=== PATIENT | male | born 1950 | race African-American/Black ===

== ENCOUNTER 2016-11-08 21:50 | Inpatient (IN) | payer MEDICARE, OTHER ==
[~2016-11-08] VITALS: Ht 185.4 cm; Wt 121.1 kg
[2016-11-08 22:43] LABS: MEAN CORPUSCULAR HEMOGLOBIN 31.5 PG (27.0-31.0); MEAN CORPUSCULAR HGB CONC 32.9 G/DL (32.0-36.0); MEAN CORPUSCULAR VOLUME 96 FL (80-99); MEAN PLATELET VOLUME 8.6 FL (6.5-10.1); PLATELET COUNT 101 K/UL (150-450); RED BLOOD COUNT 4.88 M/UL (4.70-6.10); RED CELL DISTRIBUTION WIDTH 12.5 % (11.6-14.8); WHITE BLOOD COUNT 9.4 K/UL (4.8-10.8)
[2016-11-08 22:46] VITALS: BP 132/86
[2016-11-08 22:51] LABS: ALANINE AMINOTRANSFERASE 45 U/L (3-41); ALBUMIN/GLOBULIN RATIO 0.8 (1.0-2.7); ANION GAP 19 (5-15); ASPARTATE AMINO TRANSFERASE 83 U/L (5-40); CALCIUM 8.1 mg/dL (8.6-10.2); CARBON DIOXIDE 19 mEQ/L (20-30); CHLORIDE 98 mEQ/L (98-107); CREATININE 0.9 mg/dL (0.7-1.2); GLOMERULAR FILTRATION RATE > 60 mL/min (>60); HEMOLYSIS 25; POTASSIUM 3.4 mEQ/L (3.4-4.9); SODIUM 136 mEQ/L (135-145); TOTAL PROTEIN 6.4 g/dL (6.6-8.7); TROPONIN I < 0.30 ng/mL (<=0.30)
[2016-11-08 23:11] LABS: BILIRUBIN,DIRECT 0.6 mg/dL (0.1-0.3)
--- NOTE | 2016-11-08 23:25 | Emergency Room Report ---
History of Present Illness General Chief Complaint: Dyspnea/Respdistress Source: Patient Present Illness HPI Is a 65-year-old male who has a over 40 year smoking history. He quit in 2011. Also history of hepatitis. He presents with chief complaint desaturation. He was in the recovery center at the surgical center. He had rotator cuff surgery. He was sent here because observation was in the mid 80 percentile. Also hard time waking him up. Here he said he felt well. He said he fell better now. Still a little groggy. No other complaint. No shortness of breath. No fever or chills. Not on oxygen at home. Allergies: Coded Allergies: No Known Allergies (Unverified , 11/08/16) Patient History Past Medical History: see triage record, old chart reviewed Past Surgical History: other Pertinent Family History: none Social History: Reports: smoking - 40 year history. Quit 2011, Denies: drug use Immunizations: other Reviewed Nursing Documentation: PMH: Agreed, PSxH: Agreed Nursing Documentation-PM Past Medical History: No History, Except For Hx Hypertension: Yes Review of Systems Eye: Denies: blurred vision, eye pain ENT: Denies: ear pain, nose congestion, throat swelling Respiratory: Denies: cough, shortness of breath Cardiovascular: Denies: chest pain, palpitations Gastrointestinal: Denies: abdominal pain, diarrhea, nausea, vomiting Musculoskeletal: Denies: back pain, joint pain Skin: Denies: rash Neurological: Denies: headache, numbness Endocrine: Denies: increased thirst, increased urine Hematologic/Lymphatic: Denies: easy bruising All Other Systems: negative except mentioned in HPI Physical Exam Vital Signs Date Time Temp Pulse Resp B/P Pulse Ox O2 Delivery O2 Flow Rate FiO2 11/08/16 21:57 98.2 92 16 125/64 93 Room Air 11/08/16 22:46 2.0 vitals with mild hypoxia Sp02 EP Interpretation: reviewed, normal General Appearance: well appearing, no apparent distress, alert Head: normocephalic, atraumatic Eyes: bilateral eye EOMI, bilateral eye PERRL ENT: hearing grossly normal, normal pharynx Neck: full range of motion, supple, no meningismus Respiratory: chest non-tender, lungs clear, normal breath sounds Cardiovascular #1: regular rate, rhythm, no murmur Gastrointestinal: normal bowel sounds, non tender, no mass, no organomegaly, no bruit, non-distended Musculoskeletal: back normal, other - left shoulder in a sling Neurologic: alert, oriented x3 Psychiatric: mood/affect normal Skin: warm/dry Medical Decision Making Diagnostic Impression: Primary Impression: Dyspnea Qualified Codes: R06.00 - Dyspnea, unspecified Additional Impression: COPD (chronic obstructive pulmonary disease) Qualified Codes: J44.9 - Chronic obstructive pulmonary disease, unspecified ER Course Patient presents with postop dyspnea. Most likely because of his long-standing smoking history there is some component of COPD. This cause some desaturation. He fell better now with oxygen. Will place in observation for monitoring. I discussed the case with Dr. Kamara who will place patient in observation. Lab Results Impression labs unremarkable EKG Diagnostic Results Rate: normal Rhythm: NSR ST Segments: no acute changes Rhythm Strip Diag. Results EP Interpretation: yes Rate: 85 Rhythm: NSR, no PVC's, no ectopy Chest X-Ray Diagnostic Results EP Interpretation: Yes Findings: no consolidation, no effusion, no pneumothorax, no acute cardiopulmonary disease Number of Views: 1 Last Vital Signs Date Time Temp Pulse Resp B/P Pulse Ox O2 Delivery O2 Flow Rate FiO2 11/08/16 22:46 98.2 88 15 132/86 98 Nasal Cannula 2.0 Status: improved Disposition: PLACE IN OBSERVATION Condition: Serious Referrals: NON PHYSICIAN (PCP) RITA ROBERTS M.D. Nov 08, 2016 23:25
[2016-11-08 23:41] LABS: BAND NEUTROPHILS % (MANUAL) 2 % (0-8); LYMPHOCYTES % (MANUAL) 10 % (20-45); NEUTROPHILS % (MANUAL) 83 % (45-75); TOTAL CELLS COUNTED 100
[2016-11-08 23:42] LABS: ANISOCYTOSIS 1+; BASOPHILS % (MANUAL) 0 % (0-2); EOSINOPHILS % (MANUAL) 0 % (0-3); PLATELET ESTIMATE DECREASED; PLATELET MORPHOLOGY NORMAL
[2016-11-08] MEDS ORDERED: UNOBMED (23:45)
[2016-11-08] MEDS ORDERED: Zolpidem 5mg tab ORAL PRN (23:45)
[2016-11-09] VITALS (8 sets, daily range): BP systolic 117–152; BP diastolic 53–84
[2016-11-09] MEDS ORDERED: D5 1/2NS w/KCl 20mEq 1,000 ML IV SCH
[2016-11-09] MEDS ORDERED: BENAZEPRIL HCL40 MG ORAL (02:27)
[2016-11-09] MEDS ORDERED: HYDROCHLOROTHIA25 MG ORAL (02:27)
[2016-11-09] MEDS: Albuterol ud Inhalation HHN SCH ×4 (07:48→19:04)
[2016-11-09] MEDS: Norco 7.5mg/325mg tab ORAL PRN (08:03)
--- NOTE | 2016-11-09 08:59 | History & Physical ---
History and Physical History & Physicial 65 year old male with h/o HTN, smoking, Hepatitis C, admitted for post op confusion and hypoxemia. H & P dictated. CHATO MEDINA Nov 09, 2016 08:59
--- NOTE | 2016-11-09 09:01 | Cardiology Progress Note ---
Assessment/Plan Status Narrative 1. s/p L shoulder surgery 2. Smoking 40 pk years- COPD 3. Hepatitis C 4. Mild LFT abnormalities 5.Obesity 6.Hypoxemia - most likely due to anesthesia and COPD 7. R arm tremor ? etio Assessment/Plan Observation Check labs Hold DC May need neuro eval O2 PRN Pain meds Check labs Subjective Cardiovascular: Reports: no symptoms Respiratory: Reports: no symptoms Gastrointestinal/Abdominal: Reports: no symptoms Genitourinary: Reports: no symptoms Subjective C/O shoulder pain, Has been having R upper ext tremor.. Objective Last 24 Hour Vital Signs Date Time Temp Pulse Resp B/P Pulse Ox O2 Delivery O2 Flow Rate FiO2 11/09/16 08:00 97.7 73 18 118/65 97 Nasal Cannula 2.0 11/09/16 07:59 78 18 Nasal Cannula 2.0 11/09/16 07:58 79 18 98 Nasal Cannula 2.0 11/09/16 07:48 78 18 93 Nasal Cannula 2.0 11/09/16 04:00 97.9 77 20 117/53 92 Nasal Cannula 2.0 11/09/16 00:30 98.1 88 16 132/66 98 Nasal Cannula 2.0 11/09/16 00:05 98.4 86 17 130/84 99 Nasal Cannula 2.0 11/09/16 00:00 98.4 86 17 130/84 99 Nasal Cannula 2.0 11/08/16 22:46 98.2 88 15 132/86 98 Nasal Cannula 2.0 11/08/16 22:46 82 12 Room Air 11/08/16 21:57 98.2 92 16 125/64 93 Room Air Neck: non-tender, supple Cardiovascular: normal rate, regular rhythm, no gallop/murmur Respiratory/Chest: lungs clear, decreased breath sounds Abdomen: non tender, soft, no organomegaly, no mass Extremities: non-tender, normal inspection, no calf tenderness, no swelling Intake and Output 11/08/16 11/09/16 19:00 07:00 Intake Total 120 ml Output Total 0 ml Balance 120 ml Intake Oral 120 ml Output Urine Total 0 ml Laboratory Tests Test 11/08/16 22:20 White Blood Count 9.4 K/UL (4.8-10.8) Red Blood Count 4.88 M/UL (4.70-6.10) Hemoglobin 15.4 G/DL (14.2-18.0) Hematocrit 46.7 % (42.0-52.0) Mean Corpuscular Volume 96 FL (80-99) Mean Corpuscular Hemoglobin 31.5 PG (27.0-31.0) H Mean Corpuscular Hemoglobin Concent 32.9 G/DL (32.0-36.0) Red Cell Distribution Width 12.5 % (11.6-14.8) Platelet Count 101 K/UL (150-450) L Mean Platelet Volume 8.6 FL (6.5-10.1) Neutrophils (%) (Auto) % (45.0-75.0) Lymphocytes (%) (Auto) % (20.0-45.0) Monocytes (%) (Auto) % (1.0-10.0) Eosinophils (%) (Auto) % (0.0-3.0) Basophils (%) (Auto) % (0.0-2.0) Differential Total Cells Counted 100 Neutrophils % (Manual) 83 % (45-75) H Lymphocytes % (Manual) 10 % (20-45) L Monocytes % (Manual) 5 % (1-10) Eosinophils % (Manual) 0 % (0-3) Basophils % (Manual) 0 % (0-2) Band Neutrophils 2 % (0-8) Platelet Estimate Decreased L Platelet Morphology Normal Anisocytosis 1+ Sodium Level 136 mEQ/L (135-145) Potassium Level 3.4 mEQ/L (3.4-4.9) Chloride Level 98 mEQ/L (98-107) Carbon Dioxide Level 19 mEQ/L (20-30) L Anion Gap 19 (5-15) H Blood Urea Nitrogen 15 mg/dL (7-23) Creatinine 0.9 mg/dL (0.7-1.2) Estimat Glomerular Filtration Rate > 60 mL/min (>60) Glucose Level 196 mg/dL (74-106) H Calcium Level 8.1 mg/dL (8.6-10.2) L Total Bilirubin 1.6 mg/dL (0.0-1.2) H Direct Bilirubin 0.6 mg/dL (0.1-0.3) H Aspartate Amino Transf (AST/SGOT) 83 U/L (5-40) H Alanine Aminotransferase (ALT/SGPT) 45 U/L (3-41) H Alkaline Phosphatase 74 U/L (40-129) Troponin I < 0.30 ng/mL (<=0.30) Pro-B-Type Natriuretic Peptide 95 pg/mL (0-125) Total Protein 6.4 g/dL (6.6-8.7) L Albumin 3.0 g/dL (3.5-5.2) L Globulin 3.4 g/dL Albumin/Globulin Ratio 0.8 (1.0-2.7) L CHATO MEDINA Nov 09, 2016 09:01
[2016-11-09 09:44] LABS: MEAN CORPUSCULAR HGB CONC 33.3 G/DL (32.0-36.0); MEAN CORPUSCULAR VOLUME 96 FL (80-99); MEAN PLATELET VOLUME 8.9 FL (6.5-10.1); PLATELET COUNT 105 K/UL (150-450); RED BLOOD COUNT 4.57 M/UL (4.70-6.10); RED CELL DISTRIBUTION WIDTH 12.9 % (11.6-14.8); WHITE BLOOD COUNT 14.6 K/UL (4.8-10.8)
[2016-11-09 10:19] LABS: ALANINE AMINOTRANSFERASE 42 U/L (3-41); ALBUMIN/GLOBULIN RATIO 0.9 (1.0-2.7); ANION GAP 16 (5-15); ASPARTATE AMINO TRANSFERASE 72 U/L (5-40); CALCIUM 8.4 mg/dL (8.6-10.2); CARBON DIOXIDE 22 mEQ/L (20-30); CHLORIDE 97 mEQ/L (98-107); GLOMERULAR FILTRATION RATE > 60 mL/min (>60); HEMOLYSIS 5; POTASSIUM 3.8 mEQ/L (3.4-4.9); SODIUM 135 mEQ/L (135-145); TOTAL PROTEIN 6.5 g/dL (6.6-8.7)
[2016-11-09 10:29] LABS: THYROID STIMULATING HORMONE 0.699 uIU/mL (0.300-4.500)
[2016-11-09 10:51] LABS: BAND NEUTROPHILS % (MANUAL) 0 % (0-8); BASOPHILS % (MANUAL) 0 % (0-2); EOSINOPHILS % (MANUAL) 0 % (0-3); LYMPHOCYTES % (MANUAL) 6 % (20-45); NEUTROPHILS % (MANUAL) 91 % (45-75); PLATELET ESTIMATE DECREASED; PLATELET MORPHOLOGY NORMAL; TOTAL CELLS COUNTED 100
[2016-11-09 10:53] LABS: BILIRUBIN,DIRECT 0.5 mg/dL (0.1-0.3)
--- NOTE | 2016-11-09 11:35 | Diagnostic Imaging Report ---
Indications: Shortness of breath Technique: Portable AP chest Findings: Comparison: None Cardiac silhouette enlarged. Pulmonary vascular redistribution. Bilateral interstitial infiltrates. No obvious pleural abnormalities. Suggestion of bridging osteophytes lower thoracic spine. IMPRESSION: Findings compatible with congestive heart failure Suggestion of degenerative spondylosis
--- NOTE | 2016-11-09 13:06 | Consultation ---
Consult Note Consult Note NEUROLOGY CONSULTATION: Full note dictated #[id number] 65 y/o, RH, BM with PH of HepC, COPD, HTN. On 11/08/16 had left shoulder surgery. He has since been noted to have an altered mental state and right UE jerky movements when he tries to use that limb. ON EXAM: Problems with memory. Globally diminished reflexes. B-UE asterixis and myoclonus. Generalized myoclonus. IMPRESSION: Suspect metabolic/toxic encephalopathy. REC: Ammonia, ABG, B12, Folate, Vit D, RPR MRI of brain EEG Observe closely. Linda Tomas M.D., M.S.P.H. LINDA TOMAS Nov 09, 2016 13:06
[2016-11-09 14:00] LABS: ABG ALLEN TEST POSITIVE; ABG BASE EXCESS -0.3; ABG PCO2 37.8 mmHg (35.0-45.0)
--- NOTE | 2016-11-09 15:57 | Diagnostic Imaging Report ---
Indications: Right-sided weakness and tremors Technique: Sagittal and axial T1 weighted FLAIR, axial T2-weighted fat saturated fast spin echo propeller, T2-weighted FLAIR, T2*-weighted gradient echo, and diffusion sequences of the brain were performed without IV gadolinium administration. Findings: Comparison: None Motion artifact degrades all images. Multiple circumscribed foci of signal change/parenchymal loss are present in the right frontal periventricular and deep white matter, left frontal periventricular white matter, and bilateral centrum semiovale. Superimposed confluent T2 signal hyperintensity is present throughout the bilateral periventricular and deep white matter. This extends focally into the subcortical white matter high in the right parietal vertex. There is a 1 cm circumscribed focus of increased signal within the anterior aspect of the left centrum semiovale on diffusion images, though without associated signal dropout on ADC map. Ventricles, cisterns, sulci are diffusely prominent. No evidence of mass or hemorrhage, other signal abnormality, mass effect, midline shift, hydrocephalus, or increased intracranial pressure. No restricted diffusion. Central vascular flow voids are preserved. IMPRESSION: Apparent 1 cm focus of restricted diffusion left centrum semiovale more likely represents artifactual T2 shine through and true restricted diffusion and of an acute lacunar infarct, given lack of corresponding findings on ADC map. Additional bilateral old lacunar infarcts as described Bilateral cerebral periventricular , deep, and subcorticalwhite matter signal hyperintensity, nonspecific, likely chronic microvascular ischemic in nature Atrophy
[2016-11-09 16:52] LABS: HEMOGLOBIN A1C 4.7 % (< 6.0)
--- NOTE | 2016-11-09 17:58 | Consultation ---
DATE OF CONSULTATION: 11/09/2016 NEUROLOGY CONSULTATION CONSULTING PHYSICIAN: Adam Tomas M.D. REQUESTING PHYSICIAN: Misael Kamara M.D. HISTORY: Mr. Vernon Castillo is a 65-year-old, right-handed, black gentleman, who does have a past history of hepatitis C, chronic obstructive pulmonary disease, and hypertension. He was functioning relatively well until recently when he developed increasing problems with left shoulder pain related to an injury. On 11/08/2016, he had left shoulder surgery performed. Following the surgery, he was noted to have significant problems with regaining alertness and in addition, he was also noticed to have right upper extremity jerking movements whenever he uses that extremity. He has not been using his left upper extremity because of the recent surgery, so he does not know if there are any abnormal movements there or not. He denies any weakness on one side or the other, numbness on one side or the other, problems with speech, problems with language, problems with vision, problems with memory, or any other neurological problems. At this point in time, he feels that his mind is back to normal. PAST MEDICAL HISTORY: Significant for hypertension, chronic obstructive pulmonary disease, hepatitis C for which he got Harvoni therapy and left shoulder surgery recently. FAMILY HISTORY: Significant for high blood pressure in other family members. PERSONAL HISTORY: Home: He lives alone. 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 Habits: He used to smoke and drink in the past, but stopped doing both numerous years ago. He denies use of any illicit drugs. PRESENT MEDICATIONS: Include albuterol, [place], and Ambien. PHYSICAL EXAMINATION: GENERAL: He is a well-developed, well-nourished, obese, black gentleman, lying in bed, and exhibiting some generalized myoclonus. VITAL SIGNS: Pulse 82 per minute, blood pressure 137/60 mmHg, respirations 18 per minute, and temperature 97.9 degrees Fahrenheit. HEAD: Normocephalic and atraumatic. EENT: Examination benign. NECK: No neck rigidity was observed. NEUROLOGIC EXAMINATION: MENTAL STATUS EXAMINATION: He was awake and alert. He was oriented to person, place, and time except for the name of the hospital. He was able to recall 3/3 words immediately, but could only remember 2/3 words in 1 minute and 3 minutes even on the second trial. He was able to remember presidents Trump through [place], but had problems remembering presidents prior to that. His mathematical skills were relatively good. His visuospatial function was preserved. SPEECH: He had no dysarthria. LANGUAGE: He had a mild anomia for low-frequency words. CRANIAL NERVE EXAMINATION: II: The visual dutta were intact to confrontation testing. III, IV & : The external ocular movements were full and the pupils 3 mm in diameter, equal, round, regular, and reactive to light. V: He had normal facial sensations, and the temporales, masseters, and pterygoids functioned normally. VII: He had normal facial expressions and no facial asymmetry. VIII: He was able to hear well bilaterally and had no nystagmus. IX: The palate moved symmetrically on phonation. X: He had no hoarseness of voice. XI: The sternocleidomastoids and trapezii functioned normally. XII: The tongue was in the midline without any fasciculations or atrophy. MOTOR SYSTEM: The tone was normal in both lower extremities and in the right upper extremity. It could not be tested adequately in the left upper extremity because the shoulder was immobilized. Examination of muscle mass revealed no focal wasting. Examination of power revealed grade 5/5 power in all muscle groups tested. It should be noted that the left shoulder and elbow were not tested because they were immobilized. SENSORY EXAMINATION: He had intact sensation to pinprick, light touch, and graphesthesia. COORDINATION: He performed well on [id number] testing with some minimal myoclonus. He was having significant problems performing [id number] testing on the right side because of asterixis and myoclonus in that extremity. [id number] testing was not tested on the left side. REFLEXES: 1+ and bilaterally symmetrical at the knees, 1+ at the biceps, triceps, and brachioradialis on the right side, not tested on the left side, and zero at both ankles. The plantar responses were flexor bilaterally. STANCE & GAIT: Deferred. ABNORMAL MOVEMENTS: The patient exhibited spontaneous myoclonus involving his entire body. In addition, when he was made to use his right upper extremity, he demonstrated a combination of myoclonus and asterixis. When the left hand was held up, he had asterixis in the left hand. DIAGNOSTIC IMPRESSION: 1. Mr. Vernon Castillo is a 65-year-old, right-handed, black gentleman, who does have a past history of hypertension, chronic obstructive pulmonary disease, and hepatitis C, who had left shoulder surgery on 11/08/2016 and since then has had some alteration in his mental state and in addition, right upper extremity jerking movements when he uses the extremity. 2. On neurological examination, at this time, he does demonstrate problems with orientation, recent and remote memory, globally diminished reflexes, bilateral upper extremity asterixis and myoclonus, and in addition, generalized myoclonus. 3. Laboratory data obtained thus far reveal that his WBC count is elevated to 14,600. His blood sugar is elevated to 186. His liver function tests are elevated with a total bilirubin of 1.4. AST of 72 and ALT of 42. His TSH and T4 are normal. 4. The patient's history and neurological examination are most compatible with a significant toxic metabolic encephalopathy causing myoclonus and asterixis. The likelihood of intracranial pathology is low. RECOMMENDATIONS: 1. Agree with management thus far. 2. In addition to the laboratory tests already done, a serum ammonia, arterial blood gas, B12, folate, vitamin D, and RPR will be obtained. 3. An MRI scan of the brain will be ordered to evaluate the patient for intracranial pathology. 4. An EEG will be ordered to evaluate the patient for the degree and type of cerebral dysfunction. 5. Depending on the results of the above-mentioned tests, further recommendations will be given. Thank you for entrusting me with the care of Mr. Castillo. I shall follow him with you. Adam Tomas M.D., M.S.P.H. DR: PENELOPE JOB#: [id number]
[2016-11-10 04:00] VITALS: BP_SYST 132; BP_SYST 144; BP_DIAS 64; BP_DIAS 71
[2016-11-10] MEDS: Albuterol ud Inhalation HHN SCH ×4 (07:40→19:00)
[2016-11-10 08:00] VITALS: BP_SYST 142; BP_DIAS 71; BP_DIAS 80
[2016-11-10 12:28] VITALS: BP 148/67
--- NOTE | 2016-11-10 13:27 | Cardiology Progress Note ---
Assessment/Plan Status: not improved Status Narrative 1. s/p L shoulder surgery 2. Smoking 40 pk years- COPD 3. Hepatitis C 4. Mild LFT abnormalities 5.Obesity 6.Hypoxemia - most likely due to anesthesia and COPD- improved 7. R arm tremor ? etio - R/o toxic-metabolic Assessment/Plan Admitted Check labs Hold DC neuro eval appreciated O2 PRN Pain meds- will decrease DC drain. DC IV fluids 2D Echo to r/o CMP Discussed with Dr. Edmonds. Subjective Cardiovascular: Reports: no symptoms Respiratory: Denies: cough, shortness of breath Gastrointestinal/Abdominal: Reports: constipated Genitourinary: Reports: no symptoms Subjective C/O shoulder pain stable. sitting up in chair. Has been having R upper ext tremor..Unable to feed himself due to lack of control of the R upper Ext. Objective Last 24 Hour Vital Signs Date Time Temp Pulse Resp B/P Pulse Ox O2 Delivery O2 Flow Rate FiO2 11/10/16 12:28 97.7 81 18 148/67 Room Air 11/10/16 10:48 82 20 98 Room Air 11/10/16 10:39 80 18 95 Room Air 11/10/16 08:00 98.0 79 20 142/71 Room Air 11/10/16 07:48 88 18 98 Room Air 11/10/16 07:40 87 18 97 Room Air 11/10/16 04:00 97.3 83 20 144/71 93 Room Air 11/09/16 23:47 97.7 84 20 149/73 96 Room Air 11/09/16 20:00 97.4 87 20 152/62 94 Room Air 11/09/16 19:35 77 18 98 Room Air 11/09/16 19:04 83 18 93 Room Air 11/09/16 16:20 98.1 84 17 143/57 90 Room Air 11/09/16 15:47 84 18 97 Room Air 11/09/16 15:37 84 18 96 Nasal Cannula 2.0 General Appearance: WD/WN, no apparent distress EENT: PERRL/EOMI Neck: supple Cardiovascular: normal rate, regular rhythm, no gallop/murmur Respiratory/Chest: lungs clear, normal breath sounds, no respiratory distress Abdomen: non tender, no organomegaly, no mass, hypoactive bowel sounds Extremities: non-tender Neurologic: other - severe tremor/asterexis of the R upper Ext. Intake and Output 11/09/16 11/10/16 19:00 07:00 Intake Total 1800 ml 250 ml Output Total 15 ml 1410 ml Balance 1785 ml -1160 ml Intake Oral 1800 ml 250 ml Output Urine Total 1400 ml Drainage Total 15 ml 10 ml # Voids 4 5 Laboratory Tests Test 11/09/16 13:50 11/09/16 16:20 11/10/16 12:15 Arterial Blood pH 7.410 (7.350-7.450) Arterial Blood Partial Pressure CO2 37.8 mmHg (35.0-45.0) Arterial Blood Partial Pressure O2 70.7 mmHg (75.0-100.0) L Arterial Blood HCO3 23.9 mmol/L (22.0-26.0) Arterial Blood Oxygen Saturation 94.2 % (92.0-98.0) Arterial Blood Base Excess -0.3 Jan Test Positive Hemoglobin A1c 4.7 % (< 6.0) Ammonia 72 umol/L (16-60) H 53 umol/L (16-60) Vitamin B12 Level 1057 pg/mL (211-946) H Vitamin D 25-Hydroxy Pending 25-Hydroxy Vitamin D2 Pending 25-Hydroxy Vitamin D3 Pending Folate 16.3 ng/mL (>3.0) Rapid Plasma Reagin Non reactive (Non Reactive) CHATO MEDINA Nov 10, 2016 13:27
--- NOTE | 2016-11-10 14:13 | Neurology Progress Note ---
Interim History Interim History Interim History Mr. Castillo feels better. His abnormal movements are a little better. The mind is a little clearer. He denies any new neurologic symptoms. The abnormal movements are still disruptive. Review of Systems Neuro Review of Systems Benign. Objective Physical Exam Last Vital Signs Date Time Temp Pulse Resp B/P Pulse Ox O2 Delivery O2 Flow Rate FiO2 11/10/16 12:28 97.7 81 18 148/67 Room Air 11/10/16 10:48 98 11/09/16 15:37 2.0 Laboratory Tests Test 11/09/16 16:20 11/10/16 12:15 Hemoglobin A1c 4.7 % (< 6.0) Ammonia 72 umol/L (16-60) H 53 umol/L (16-60) Vitamin B12 Level 1057 pg/mL (211-946) H Vitamin D 25-Hydroxy Pending 25-Hydroxy Vitamin D2 Pending 25-Hydroxy Vitamin D3 Pending Folate 16.3 ng/mL (>3.0) Rapid Plasma Reagin Non reactive (Non Reactive) Neurologic Exam Objective PHYSICAL EXAMINATION: GENERAL: He is a well-developed, well-nourished, obese, black gentleman, sitting up in a chair. HEAD: Normocephalic and atraumatic. EENT: Examination benign. NECK: No neck rigidity was observed. NEUROLOGIC EXAMINATION: MENTAL STATUS EXAMINATION: He was awake and alert. He was oriented to person, place, and time except for the name of the hospital. He was able to recall 3/3 words immediately, but could only remember 2/3 words in 1 minute and 3 minutes even on the second trial. He was able to remember presidents Trump through [place], but had problems remembering presidents prior to that. His mathematical skills were relatively good. His visuospatial function was preserved. SPEECH: He had no dysarthria. LANGUAGE: He had a mild anomia for low-frequency words. CRANIAL NERVE EXAMINATION: II: The visual dutta were intact to confrontation testing. III, IV & : The external ocular movements were full and the pupils 3 mm in diameter, equal, round, regular, and reactive to light. V: He had normal facial sensations, and the temporales, masseters, and pterygoids functioned normally. VII: He had normal facial expressions and no facial asymmetry. VIII: He was able to hear well bilaterally and had no nystagmus. IX: The palate moved symmetrically on phonation. X: He had no hoarseness of voice. XI: The sternocleidomastoids and trapezii functioned normally. XII: The tongue was in the midline without any fasciculations or atrophy. MOTOR SYSTEM: The tone was normal in both lower extremities and in the right upper extremity. It could not be tested adequately in the left upper extremity because the shoulder was immobilized. Examination of muscle mass revealed no focal wasting. Examination of power revealed grade 5/5 power in all muscle groups tested. It should be noted that the left shoulder and elbow were not tested because they were immobilized. SENSORY EXAMINATION: He had intact sensation to pinprick, light touch, and graphesthesia. COORDINATION: He performed well on rnpb-il-kdik testing. He was having significant problems performing tjbeul-as-wltu testing on the right side because of asterixis and myoclonus in that extremity. Pbgjln-gd-lyqy testing was not tested on the left side. REFLEXES: 1+ and bilaterally symmetrical at the knees, 1+ at the biceps, triceps , and brachioradialis on the right side, not tested on the left side, and zero at both ankles. The plantar responses were flexor bilaterally. STANCE & GAIT: Deferred. ABNORMAL MOVEMENTS: The patient exhibited spontaneous myoclonus involving his entire body - however this was significantly better than yesterday. In addition , when he was made to use his right upper extremity, he demonstrated a combination of myoclonus and asterixis. When the left hand was held up, he had asterixis in the left hand. Impression/Recommendations Diagnostic Impression 1. Mr. Vernon Castillo is a 65-year-old, right-handed, black gentleman, who does have a past history of hypertension, chronic obstructive pulmonary disease , and hepatitis C, who had left shoulder surgery on 11/08/2016 and since then has had some alteration in his mental state and in addition, right upper extremity jerking movements when he uses the extremity. 2. He feels better today. The mind is clearer and the movements are less bothersome. 3. On neurological examination, at this time, he does demonstrate problems with orientation, recent and remote memory, globally diminished reflexes, bilateral upper extremity asterixis and myoclonus. 4. Laboratory data obtained on my initial evaluation revealed that his WBC count was elevated to 14,600. His blood sugar was elevated to 186. His liver function tests were elevated with a total bilirubin of 1.4. AST of 72 and ALT of 42. His TSH and T4 were normal. 5. Further laboratory tests have revealed an elevated Ammonia and hypoxia. 6. The EEG revealed a moderate encephalopathy. 7. The Brain MRI revealed atrophy and a remote lacunar infarct involving the left centrum semiovale. In addition bilateral cerebral periventricular, and deep subcortical white matter signal hyperintensity indicative of chronic microvascular ischemic disease was seen. 8. The patient's history and neurological examination are most compatible with a significant toxic metabolic encephalopathy causing myoclonus and asterixis. Recommendations 1. Continue present management. 2. Correct hypoxia the best possible. 3. Lactulose 30 ml q 4 hours x3. 4. Observe. Linda Tomas M.D., M.S.P.LINDA ORDAZ Nov 10, 2016 14:13
[2016-11-10] MEDS ORDERED: Lactulose 20gm/30ml UDC ORAL SCH (14:30)
[2016-11-10] MEDS: Lactulose 20gm/30ml UDC ORAL SCH ×3 (15:49→20:28)
[2016-11-10 16:30] VITALS: BP 165/76
--- NOTE | 2016-11-10 19:38 | Electroencephalogram ---
DATE OF PROCEDURE: 11/09/2016 ELECTROENCEPHALOGRAM REPORT REQUESTING PHYSICIAN: Misael Kamara M.D. HISTORY: This EEG was performed on a 65-year-old gentleman who recently had left shoulder surgery and since then has been exhibiting some abnormal jerky movements of his upper extremities and an alteration in his mental state. The purpose of this EEG was to evaluate the patient for the degree and type of cerebral dysfunction. TECHNICAL NOTE: This EEG was performed on a [employer] acquisition unit with electrodes placed on the scalp according to the International 10-20 system. Qgxgf-tt-kdxfb and eplqa-ow-ckt montages were used. The EEG was of technically mediocre quality due to the fact that an artifact was seen in the right occipital and temporal and left occipital area, and was not corrected. OBSERVATIONS: In the reportedly awake state, the background activity consisted of 6-7 Hz posterior rhythmic theta activity. Drowsiness was characterized by slowing of the background in the 4-5 Hz theta range with some intermixed delta frequencies. No definite focal abnormalities or epileptiform discharges were seen. IMPRESSION: This is an abnormal electroencephalogram characterized by slowing of the background in the 6-7 Hz theta range in the best awake state. COMMENT: This study is consistent with an encephalopathy of a moderate degree. Adam Tomas M.D., M.S.P.H. DR: TORSTEN JOB#: [id number] MTDD
[2016-11-10 20:00] VITALS: BP 156/90
[2016-11-11] VITALS (7 sets, daily range): BP systolic 135–157; BP diastolic 71–98
[2016-11-11] MEDS: Albuterol ud Inhalation HHN SCH ×4 (07:00→19:52)
[2016-11-11] MEDS: Norco 7.5mg/325mg tab ORAL PRN (08:07)
[2016-11-11 12:24] LABS: AMMONIA 103 umol/L (16-60)
[2016-11-11 12:25] LABS: ANION GAP 14 (5-15); CALCIUM 8.6 mg/dL (8.6-10.2); CARBON DIOXIDE 25 mEQ/L (20-30); CHLORIDE 98 mEQ/L (98-107); CREATININE 0.8 mg/dL (0.7-1.2); GLOMERULAR FILTRATION RATE > 60 mL/min (>60); HEMOLYSIS 5; POTASSIUM 3.6 mEQ/L (3.4-4.9); SODIUM 137 mEQ/L (135-145)
[2016-11-11] MEDS ORDERED: Lactulose 20gm/30ml UDC ORAL SCH (13:00)
--- NOTE | 2016-11-11 15:31 | Cardiology Progress Note ---
Assessment/Plan Status Narrative 1. s/p L shoulder surgery 2. Smoking 40 pk years- COPD 3. Hepatitis C 4. Mild LFT abnormalities 5.Obesity 6.Hypoxemia - most likely due to anesthesia and COPD- improved 7. R & L arm tremor/ataxia toxic-metabolic- Improved today. due to hepatic encephalopathy, elevated Ammonia.(today # 103). 8. HTN Assessment/Plan Check labs in AM Hold DC- Patient unable to manage at home and Ammonia levels going up despite Lactulose. O2 PRN Lactulose TID- QID Plan DC on Sunday. Discussed with Dr. Edmonds. Subjective Cardiovascular: Reports: no symptoms, Denies: chest pain Respiratory: Reports: no symptoms, Denies: cough, orthopnea, shortness of breath Gastrointestinal/Abdominal: Reports: other - Had BM post Lactulose, Denies: no symptoms Genitourinary: Reports: no symptoms Subjective C/O shoulder pain stable. sitting up in chair. R & L upper ext tremor improved. .Unable to feed himself due to lack of control of the R upper Ext. Ambulated in hallways. Objective Last 24 Hour Vital Signs Date Time Temp Pulse Resp B/P Pulse Ox O2 Delivery O2 Flow Rate FiO2 11/11/16 15:17 90 16 95 Room Air 11/11/16 12:00 97.7 82 20 144/71 93 Room Air 11/11/16 11:21 85 16 100 Room Air 11/11/16 11:11 82 16 96 Room Air 11/11/16 09:08 97.8 11/11/16 08:06 143/80 11/11/16 08:00 97.9 95 20 149/90 95 Room Air 11/11/16 07:00 Room Air 11/11/16 07:00 Room Air 11/11/16 04:00 97.8 92 16 143/80 94 Room Air 11/11/16 00:00 97.6 98 18 157/98 93 Room Air 11/10/16 20:00 97.7 84 18 156/90 97 11/10/16 19:20 77 16 100 Room Air 11/10/16 19:00 88 16 95 Room Air 11/10/16 18:29 165/76 11/10/16 16:30 97.7 84 18 165/76 95 Room Air 11/10/16 15:27 73 16 100 Room Air 21 General Appearance: WD/WN EENT: PERRL/EOMI Neck: non-tender, supple Cardiovascular: normal rate, regular rhythm, no gallop/murmur Respiratory/Chest: lungs clear, normal breath sounds, no respiratory distress, decreased breath sounds Abdomen: normal bowel sounds, non tender, soft, no organomegaly, no mass Extremities: non-tender, normal inspection, no swelling Intake and Output 11/10/16 11/11/16 19:00 07:00 Intake Total 480 ml Output Total 5 ml Balance 475 ml Intake Oral 480 ml Drainage Total 5 ml Laboratory Tests Test 11/11/16 11:25 Sodium Level 137 mEQ/L (135-145) Potassium Level 3.6 mEQ/L (3.4-4.9) Chloride Level 98 mEQ/L (98-107) Carbon Dioxide Level 25 mEQ/L (20-30) Anion Gap 14 (5-15) Blood Urea Nitrogen 17 mg/dL (7-23) Creatinine 0.8 mg/dL (0.7-1.2) Estimat Glomerular Filtration Rate > 60 mL/min (>60) Glucose Level 95 mg/dL (74-106) Calcium Level 8.6 mg/dL (8.6-10.2) Ammonia 103 umol/L (16-60) H Pro-B-Type Natriuretic Peptide 180 pg/mL (0-125) H CHATO MEDINA Nov 11, 2016 15:31
[2016-11-11] MEDS: Lactulose 20gm/30ml UDC ORAL SCH ×2 (17:10→20:16)
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
--- NOTE | 2016-11-11 22:27 | Neurology Progress Note ---
Interim History Interim History Interim History Mr. Castillo feels better. His abnormal movements are better. The mind is clearer. He denies any new neurologic symptoms. The abnormal movements are still disruptive. Review of Systems Neuro Review of Systems Benign. Objective Physical Exam Last Vital Signs Date Time Temp Pulse Resp B/P Pulse Ox O2 Delivery O2 Flow Rate FiO2 11/11/16 20:01 87 16 99 Room Air 11/11/16 19:46 98.1 148/72 11/11/16 15:29 21 11/09/16 15:37 2.0 Laboratory Tests Test 11/11/16 11:25 Sodium Level 137 mEQ/L (135-145) Potassium Level 3.6 mEQ/L (3.4-4.9) Chloride Level 98 mEQ/L (98-107) Carbon Dioxide Level 25 mEQ/L (20-30) Anion Gap 14 (5-15) Blood Urea Nitrogen 17 mg/dL (7-23) Creatinine 0.8 mg/dL (0.7-1.2) Estimat Glomerular Filtration Rate > 60 mL/min (>60) Glucose Level 95 mg/dL (74-106) Calcium Level 8.6 mg/dL (8.6-10.2) Ammonia 103 umol/L (16-60) H Pro-B-Type Natriuretic Peptide 180 pg/mL (0-125) H Neurologic Exam Objective PHYSICAL EXAMINATION: GENERAL: He is a well-developed, well-nourished, obese, black gentleman, lying in bed. HEAD: Normocephalic and atraumatic. EENT: Examination benign. NECK: No neck rigidity was observed. NEUROLOGIC EXAMINATION: MENTAL STATUS EXAMINATION: He was awake and alert. He was oriented to person, place, and time except for the name of the hospital. He was able to recall 3/3 words immediately, but could only remember 2/3 words in 1 minute and 3 minutes. He was able to remember presidents Trump through [place], but had problems remembering presidents prior to that. His mathematical skills were relatively good. His visuospatial function was preserved. SPEECH: He had no dysarthria. LANGUAGE: He had a mild anomia for low-frequency words. CRANIAL NERVE EXAMINATION: II: The visual dutta were intact to confrontation testing. III, IV & : The external ocular movements were full and the pupils 3 mm in diameter, equal, round, regular, and reactive to light. V: He had normal facial sensations, and the temporales, masseters, and pterygoids functioned normally. VII: He had normal facial expressions and no facial asymmetry. VIII: He was able to hear well bilaterally and had no nystagmus. IX: The palate moved symmetrically on phonation. X: He had no hoarseness of voice. XI: The sternocleidomastoids and trapezii functioned normally. XII: The tongue was in the midline without any fasciculations or atrophy. MOTOR SYSTEM: The tone was normal in both lower extremities and in the right upper extremity. It could not be tested adequately in the left upper extremity because the shoulder was immobilized. Examination of muscle mass revealed no focal wasting. Examination of power revealed grade 5/5 power in all muscle groups tested. It should be noted that the left shoulder and elbow were not tested because they were immobilized. SENSORY EXAMINATION: He had intact sensation to pinprick, light touch, and graphesthesia. COORDINATION: He performed well on oihh-ln-zuof testing. He was having significant problems performing sfygpo-bb-rlls testing on the right side because of asterixis and myoclonus in that extremity. Ljehlt-ka-ogqk testing was not tested on the left side. REFLEXES: 1+ and bilaterally symmetrical at the knees, 1+ at the biceps, triceps , and brachioradialis on the right side, not tested on the left side, and zero at both ankles. The plantar responses were flexor bilaterally. STANCE & GAIT: Deferred. ABNORMAL MOVEMENTS: When he was made to use his right upper extremity, he demonstrated a combination of myoclonus and asterixis. When the left hand was held up, he had asterixis in the left hand. However the abnormal movements were less severe. Impression/Recommendations Diagnostic Impression 1. Mr. Vernon Castillo is a 65-year-old, right-handed, black gentleman, who does have a past history of hypertension, chronic obstructive pulmonary disease , and hepatitis C, who had left shoulder surgery on 11/08/2016 and since then has had some alteration in his mental state and in addition, right upper extremity jerking movements when he uses the extremity. 2. He feels better today. The mind is clearer and the movements are less severe. 3. On neurological examination, at this time, he does demonstrate problems with orientation, recent and remote memory, globally diminished reflexes, bilateral upper extremity asterixis and myoclonus. 4. Laboratory data obtained on my initial evaluation revealed that his WBC count was elevated to 14,600. His blood sugar was elevated to 186. His liver function tests were elevated with a total bilirubin of 1.4. AST of 72 and ALT of 42. His TSH and T4 were normal. 5. Further laboratory tests have revealed an elevated Ammonia and hypoxia. 6. The EEG revealed a moderate encephalopathy. 7. The Brain MRI revealed atrophy and a remote lacunar infarct involving the left centrum semiovale. In addition bilateral cerebral periventricular, and deep subcortical white matter signal hyperintensity indicative of chronic microvascular ischemic disease was seen. 8. The patient's history and neurological examination are most compatible with a significant toxic metabolic encephalopathy causing myoclonus and asterixis. The abnormal movements are better today. Recommendations 1. Continue present management. 2. Correct hypoxia the best possible. 3. Continue Lactulose. 4. Observe. Linda Tomas M.D., M.S.P.Emanuel. LINDA TOMAS Nov 11, 2016 22:26
[2016-11-12 04:00] VITALS: BP 146/87
[2016-11-12 07:16] LABS: MEAN CORPUSCULAR HEMOGLOBIN 31.9 PG (27.0-31.0); MEAN CORPUSCULAR HGB CONC 32.9 G/DL (32.0-36.0); MEAN CORPUSCULAR VOLUME 97 FL (80-99); MEAN PLATELET VOLUME 8.6 FL (6.5-10.1); PLATELET COUNT 86 K/UL (150-450); RED BLOOD COUNT 4.55 M/UL (4.70-6.10); RED CELL DISTRIBUTION WIDTH 12.7 % (11.6-14.8); WHITE BLOOD COUNT 5.8 K/UL (4.8-10.8)
[2016-11-12 07:40] LABS: AMMONIA 57 umol/L (16-60)
[2016-11-12 07:43] LABS: ALANINE AMINOTRANSFERASE 45 U/L (3-41); ALBUMIN/GLOBULIN RATIO 0.9 (1.0-2.7); ANION GAP 13 (5-15); ASPARTATE AMINO TRANSFERASE 74 U/L (5-40); CARBON DIOXIDE 25 mEQ/L (20-30); CHLORIDE 101 mEQ/L (98-107); CREATININE 0.7 mg/dL (0.7-1.2); GLOMERULAR FILTRATION RATE > 60 mL/min (>60); HEMOLYSIS 9; POTASSIUM 3.6 mEQ/L (3.4-4.9); SODIUM 139 mEQ/L (135-145); TOTAL PROTEIN 6.1 g/dL (6.6-8.7)
[2016-11-12 08:00] VITALS: BP 145/74
[2016-11-12] MEDS: Albuterol ud Inhalation HHN SCH ×4 (08:17→19:39)
[2016-11-12 08:24] LABS: BILIRUBIN,DIRECT 0.5 mg/dL (0.1-0.3)
[2016-11-12] MEDS: Lactulose 20gm/30ml UDC ORAL SCH ×4 (08:48→20:36)
[2016-11-12 09:56] LABS: BAND NEUTROPHILS % (MANUAL) 0 % (0-8); BASOPHILS % (MANUAL) 0 % (0-2); EOSINOPHILS % (MANUAL) 2 % (0-3); LYMPHOCYTES % (MANUAL) 33 % (20-45); MACROCYTES 1+; NEUTROPHILS % (MANUAL) 60 % (45-75); PLATELET ESTIMATE DECREASED; PLATELET MORPHOLOGY NORMAL; TOTAL CELLS COUNTED 100
[2016-11-12 12:00] VITALS: BP 139/69
[2016-11-12 13:09] LABS: VITAMIN D 25-OH TOTAL 27 ng/mL (.)
[2016-11-12 16:00] VITALS: BP 139/73
--- NOTE | 2016-11-12 18:50 | Cardiology Report ---
APPROVED REPORT EXAM: Two-dimensional and M-mode echocardiogram with Doppler and color Doppler. INDICATION Congestive Heart Failure M-Mode DIMENSIONS IVSd0.9 (0.7-1.1cm)Left Atrium (MM)4.4 (1.6-4.0cm) LVDd5.6 (3.5-5.6cm)Aortic Root3.5 (2.0-3.7cm) PWd1.1 (0.7-1.1cm)Aortic Cusp Exc.2.0 (1.5-2.0cm) LVDs3.7 (2.5-4.0cm) PWs1.3 cm Normal left ventricular chamber size, systolic function and wall motion. Left ventricular ejection fraction estimated to be 60-65%. No evidence of left ventricular hypertrophy. No evidence of pericardial fat or effusion. Right cardiac chamber sizes are within normal limits. Mild left atrial enlargement by 2D. Mild focal aortic valve sclerosis with adequate cusp excursion sybilley reverberration artifiact noted in LV side of aortic valve is noted , clinical correlation recommended Thickened mitral valve leaflets with normal excursion. Mild mitral annulus and aortic root calcification. Pulmonic valve is well visualized. Normal tricuspid valve structure. IVC not obtainable. A color flow and spectral Doppler study was performed and revealed: No aortic regurgitation. No mitral regurgitation. Mitral inflow velocities indicates normal ventricular diastolic dysfunction. No tricuspid regurgitation. Pulmonic regurgitation present.
[2016-11-12 19:00] VITALS: BP 152/66
--- NOTE | 2016-11-12 20:34 | Neurology Progress Note ---
Interim History Interim History Interim History Mr. Castillo feels better. His abnormal movements are significantly better. The mind is clear. He denies any new neurologic symptoms. He ia able to use his right hand more effectively. Review of Systems Neuro Review of Systems Benign. Objective Physical Exam Last Vital Signs Date Time Temp Pulse Resp B/P Pulse Ox O2 Delivery O2 Flow Rate FiO2 11/12/16 19:46 79 18 99 Room Air 2.0 21 11/12/16 16:00 97.5 139/73 Laboratory Tests Test 11/12/16 04:40 White Blood Count 5.8 K/UL (4.8-10.8) Red Blood Count 4.55 M/UL (4.70-6.10) L Hemoglobin 14.5 G/DL (14.2-18.0) Hematocrit 44.0 % (42.0-52.0) Mean Corpuscular Volume 97 FL (80-99) Mean Corpuscular Hemoglobin 31.9 PG (27.0-31.0) H Mean Corpuscular Hemoglobin Concent 32.9 G/DL (32.0-36.0) Red Cell Distribution Width 12.7 % (11.6-14.8) Platelet Count 86 K/UL (150-450) L Mean Platelet Volume 8.6 FL (6.5-10.1) Neutrophils (%) (Auto) % (45.0-75.0) Lymphocytes (%) (Auto) % (20.0-45.0) Monocytes (%) (Auto) % (1.0-10.0) Eosinophils (%) (Auto) % (0.0-3.0) Basophils (%) (Auto) % (0.0-2.0) Differential Total Cells Counted 100 Neutrophils % (Manual) 60 % (45-75) Lymphocytes % (Manual) 33 % (20-45) Monocytes % (Manual) 5 % (1-10) Eosinophils % (Manual) 2 % (0-3) Basophils % (Manual) 0 % (0-2) Band Neutrophils 0 % (0-8) Platelet Estimate Decreased L Platelet Morphology Normal Macrocytosis 1+ Sodium Level 139 mEQ/L (135-145) Potassium Level 3.6 mEQ/L (3.4-4.9) Chloride Level 101 mEQ/L (98-107) Carbon Dioxide Level 25 mEQ/L (20-30) Anion Gap 13 (5-15) Blood Urea Nitrogen 13 mg/dL (7-23) Creatinine 0.7 mg/dL (0.7-1.2) Estimat Glomerular Filtration Rate > 60 mL/min (>60) Glucose Level 98 mg/dL (74-106) Calcium Level 8.0 mg/dL (8.6-10.2) L Total Bilirubin 1.6 mg/dL (0.0-1.2) H Direct Bilirubin 0.5 mg/dL (0.1-0.3) H Aspartate Amino Transf (AST/SGOT) 74 U/L (5-40) H Alanine Aminotransferase (ALT/SGPT) 45 U/L (3-41) H Alkaline Phosphatase 71 U/L (40-129) Ammonia 57 umol/L (16-60) Total Protein 6.1 g/dL (6.6-8.7) L Albumin 3.0 g/dL (3.5-5.2) L Globulin 3.1 g/dL Albumin/Globulin Ratio 0.9 (1.0-2.7) L Neurologic Exam Objective PHYSICAL EXAMINATION: GENERAL: He is a well-developed, well-nourished, obese, black gentleman, lying in bed. HEAD: Normocephalic and atraumatic. EENT: Examination benign. NECK: No neck rigidity was observed. NEUROLOGIC EXAMINATION: MENTAL STATUS EXAMINATION: He was awake and alert. He was oriented to person, place, and time. He was able to recall 3/3 words immediately, and in 1 minute and 3 minutes. He was able to remember presidents Trump through [place], but had problems remembering presidents prior to that. His mathematical skills were relatively good. His visuospatial function was preserved. SPEECH: He had no dysarthria. LANGUAGE: He had a mild anomia for low-frequency words. CRANIAL NERVE EXAMINATION: II: The visual dutta were intact to confrontation testing. III, IV & : The external ocular movements were full and the pupils 3 mm in diameter, equal, round, regular, and reactive to light. V: He had normal facial sensations, and the temporales, masseters, and pterygoids functioned normally. VII: He had normal facial expressions and no facial asymmetry. VIII: He was able to hear well bilaterally and had no nystagmus. IX: The palate moved symmetrically on phonation. X: He had no hoarseness of voice. XI: The sternocleidomastoids and trapezii functioned normally. XII: The tongue was in the midline without any fasciculations or atrophy. MOTOR SYSTEM: The tone was normal in both lower extremities and in the right upper extremity. It could not be tested adequately in the left upper extremity because the shoulder was immobilized. Examination of muscle mass revealed no focal wasting. Examination of power revealed grade 5/5 power in all muscle groups tested. It should be noted that the left shoulder and elbow were not tested because they were immobilized. SENSORY EXAMINATION: He had intact sensation to pinprick, light touch, and graphesthesia. COORDINATION: He performed well on [id number]-cz-[id number] testing. He performed well on erhxwz-[id number] testing on the right side. Vnozvl-sq-imzk testing was not tested on the left side as the limb was immobilized. REFLEXES: 1+ and bilaterally symmetrical at the knees, 1+ at the biceps, triceps , and brachioradialis on the right side, not tested on the left side, and zero at both ankles. The plantar responses were flexor bilaterally. STANCE & GAIT: Deferred. ABNORMAL MOVEMENTS: When he was made to use his right and left upper extremities he demonstrated a mild myoclonus. He had no asterixis. Impression/Recommendations Diagnostic Impression 1. Mr. Vernon Castillo is a 65-year-old, right-handed, black gentleman, who does have a past history of hypertension, chronic obstructive pulmonary disease , and hepatitis C, who had left shoulder surgery on 11/08/2016 and since then has had some alteration in his mental state and in addition, right upper extremity jerking movements when he uses the extremity. 2. He feels better today. The mind is clearer and the abnormal movements are much better. 3. On neurological examination, at this time, he does demonstrate problems with memory, globally diminished reflexes, and bilateral upper extremity myoclonus. The myoclonus is milder and the asterixis has resolved. 4. Laboratory data obtained on my initial evaluation revealed that his WBC count was elevated to 14,600. His blood sugar was elevated to 186. His liver function tests were elevated with a total bilirubin of 1.4. AST of 72 and ALT of 42. His TSH and T4 were normal. 5. Further laboratory tests have revealed an elevated Ammonia and hypoxia. 6. The EEG revealed a moderate encephalopathy. 7. The Brain MRI revealed atrophy and a remote lacunar infarct involving the left centrum semiovale. In addition bilateral cerebral periventricular, and deep subcortical white matter signal hyperintensity indicative of chronic microvascular ischemic disease was seen. 8. The patient's history and neurological examination are most compatible with a toxic metabolic encephalopathy causing myoclonus and asterixis. The encephalopathy is resolving and the abnormal movements are abating. Recommendations 1. Continue present management. 2. Correct hypoxia the best possible. 3. Continue Lactulose. 4. Observe. Linda Tomas M.D., M.S.P.H. LINDA TOMAS Nov 12, 2016 20:34
--- NOTE | 2016-11-12 23:55 | Cardiology Progress Note ---
Assessment/Plan Status Narrative 1. s/p L shoulder surgery 2. Smoking 40 pk years- COPD 3. Hepatitis C 4. Mild LFT abnormalities 5.Obesity 6.Hypoxemia - most likely due to anesthesia and COPD- improved 7. R & L arm tremor/ataxia toxic-metabolic- Improved today. due to hepatic encephalopathy, elevated Ammonia.(today # 103). 8. HTN 9. Hepatic encephalopathy- improved. 10 Leukocytosis-improved Assessment/Plan O2 PRN Lactulose TID- QID Plan DC on Sunday. Discussed with Dr. Edmonds. Laboratory Tests Test 11/12/16 04:40 White Blood Count 5.8 K/UL (4.8-10.8) Red Blood Count 4.55 M/UL (4.70-6.10) L Hemoglobin 14.5 G/DL (14.2-18.0) Hematocrit 44.0 % (42.0-52.0) Mean Corpuscular Volume 97 FL (80-99) Mean Corpuscular Hemoglobin 31.9 PG (27.0-31.0) H Mean Corpuscular Hemoglobin Concent 32.9 G/DL (32.0-36.0) Red Cell Distribution Width 12.7 % (11.6-14.8) Platelet Count 86 K/UL (150-450) L Mean Platelet Volume 8.6 FL (6.5-10.1) Neutrophils (%) (Auto) % (45.0-75.0) Lymphocytes (%) (Auto) % (20.0-45.0) Monocytes (%) (Auto) % (1.0-10.0) Eosinophils (%) (Auto) % (0.0-3.0) Basophils (%) (Auto) % (0.0-2.0) Differential Total Cells Counted 100 Neutrophils % (Manual) 60 % (45-75) Lymphocytes % (Manual) 33 % (20-45) Monocytes % (Manual) 5 % (1-10) Eosinophils % (Manual) 2 % (0-3) Basophils % (Manual) 0 % (0-2) Band Neutrophils 0 % (0-8) Platelet Estimate Decreased L Platelet Morphology Normal Macrocytosis 1+ Sodium Level 139 mEQ/L (135-145) Potassium Level 3.6 mEQ/L (3.4-4.9) Chloride Level 101 mEQ/L (98-107) Carbon Dioxide Level 25 mEQ/L (20-30) Anion Gap 13 (5-15) Blood Urea Nitrogen 13 mg/dL (7-23) Creatinine 0.7 mg/dL (0.7-1.2) Estimat Glomerular Filtration Rate > 60 mL/min (>60) Glucose Level 98 mg/dL (74-106) Calcium Level 8.0 mg/dL (8.6-10.2) L Total Bilirubin 1.6 mg/dL (0.0-1.2) H Direct Bilirubin 0.5 mg/dL (0.1-0.3) H Aspartate Amino Transf (AST/SGOT) 74 U/L (5-40) H Alanine Aminotransferase (ALT/SGPT) 45 U/L (3-41) H Alkaline Phosphatase 71 U/L (40-129) Ammonia 57 umol/L (16-60) Total Protein 6.1 g/dL (6.6-8.7) L Albumin 3.0 g/dL (3.5-5.2) L Globulin 3.1 g/dL Albumin/Globulin Ratio 0.9 (1.0-2.7) L Subjective Cardiovascular: Reports: no symptoms Respiratory: Reports: no symptoms Gastrointestinal/Abdominal: Reports: no symptoms Genitourinary: Reports: no symptoms Subjective C/O shoulder pain stable. sitting up in chair. R & L upper ext tremor improved. .Unable to feed himself due to lack of control of the R upper Ext. Ambulated in hallways. Objective Last 24 Hour Vital Signs Date Time Temp Pulse Resp B/P Pulse Ox O2 Delivery O2 Flow Rate FiO2 11/12/16 19:46 79 18 99 Room Air 2.0 21 11/12/16 19:39 79 18 96 Room Air 2.0 21 11/12/16 19:39 21 11/12/16 19:00 96.1 79 20 152/66 95 Room Air 11/12/16 16:11 78 20 100 Room Air 2.0 21 11/12/16 16:11 78 20 100 Room Air 2.0 21 11/12/16 16:00 97.5 78 20 139/73 100 Room Air 11/12/16 15:59 21 11/12/16 15:59 75 18 96 Room Air 2.0 21 11/12/16 12:00 97.2 78 20 139/69 95 Room Air 11/12/16 11:55 74 18 98 Room Air 2.0 21 11/12/16 11:42 74 18 98 Room Air 21 11/12/16 11:42 21 11/12/16 08:48 146/87 11/12/16 08:34 84 18 97 Room Air 2.0 21 11/12/16 08:19 84 18 97 Room Air 21 11/12/16 08:19 21 11/12/16 08:00 97.3 86 20 145/74 95 Room Air 11/12/16 04:00 98.1 82 17 146/87 96 Room Air EENT: PERRL/EOMI Neck: supple Cardiovascular: normal rate, regular rhythm, no gallop/murmur Respiratory/Chest: lungs clear, decreased breath sounds Abdomen: normal bowel sounds, non tender, soft, no organomegaly, no mass, distended Extremities: non-tender, normal inspection, no swelling Intake and Output 11/11/16 11/12/16 19:00 07:00 Intake Total 420 ml Balance 420 ml Intake Oral 420 ml # Voids 5 # Bowel Movements 4 Laboratory Tests Test 11/12/16 04:40 White Blood Count 5.8 K/UL (4.8-10.8) Red Blood Count 4.55 M/UL (4.70-6.10) L Hemoglobin 14.5 G/DL (14.2-18.0) Hematocrit 44.0 % (42.0-52.0) Mean Corpuscular Volume 97 FL (80-99) Mean Corpuscular Hemoglobin 31.9 PG (27.0-31.0) H Mean Corpuscular Hemoglobin Concent 32.9 G/DL (32.0-36.0) Red Cell Distribution Width 12.7 % (11.6-14.8) Platelet Count 86 K/UL (150-450) L Mean Platelet Volume 8.6 FL (6.5-10.1) Neutrophils (%) (Auto) % (45.0-75.0) Lymphocytes (%) (Auto) % (20.0-45.0) Monocytes (%) (Auto) % (1.0-10.0) Eosinophils (%) (Auto) % (0.0-3.0) Basophils (%) (Auto) % (0.0-2.0) Differential Total Cells Counted 100 Neutrophils % (Manual) 60 % (45-75) Lymphocytes % (Manual) 33 % (20-45) Monocytes % (Manual) 5 % (1-10) Eosinophils % (Manual) 2 % (0-3) Basophils % (Manual) 0 % (0-2) Band Neutrophils 0 % (0-8) Platelet Estimate Decreased L Platelet Morphology Normal Macrocytosis 1+ Sodium Level 139 mEQ/L (135-145) Potassium Level 3.6 mEQ/L (3.4-4.9) Chloride Level 101 mEQ/L (98-107) Carbon Dioxide Level 25 mEQ/L (20-30) Anion Gap 13 (5-15) Blood Urea Nitrogen 13 mg/dL (7-23) Creatinine 0.7 mg/dL (0.7-1.2) Estimat Glomerular Filtration Rate > 60 mL/min (>60) Glucose Level 98 mg/dL (74-106) Calcium Level 8.0 mg/dL (8.6-10.2) L Total Bilirubin 1.6 mg/dL (0.0-1.2) H Direct Bilirubin 0.5 mg/dL (0.1-0.3) H Aspartate Amino Transf (AST/SGOT) 74 U/L (5-40) H Alanine Aminotransferase (ALT/SGPT) 45 U/L (3-41) H Alkaline Phosphatase 71 U/L (40-129) Ammonia 57 umol/L (16-60) Total Protein 6.1 g/dL (6.6-8.7) L Albumin 3.0 g/dL (3.5-5.2) L Globulin 3.1 g/dL Albumin/Globulin Ratio 0.9 (1.0-2.7) L CHATO MEDINA Nov 12, 2016 23:55
[2016-11-13] VITALS: BP 150/70
[2016-11-13] MEDS: Albuterol ud Inhalation HHN SCH ×3 (07:14→15:45)
[2016-11-13 08:10] VITALS: BP 144/72
[2016-11-13] MEDS: Lactulose 20gm/30ml UDC ORAL SCH ×2 (09:06→13:12)
--- NOTE | 2016-11-13 11:30 | Neurology Progress Note ---
Interim History Interim History Interim History Mr. Castillo feels better. His abnormal movements are much better. He is able to use his right hand more effectively. The mind is clear. He is steadier on his feet. He feels generally stronger. He denies any new neurologic symptoms. Review of Systems Neuro Review of Systems Benign. Objective Physical Exam Last Vital Signs Date Time Temp Pulse Resp B/P Pulse Ox O2 Delivery O2 Flow Rate FiO2 11/13/16 09:06 144/72 11/13/16 08:10 97.2 79 21 97 Room Air 11/13/16 07:29 21 11/13/16 07:14 2.0 Neurologic Exam Objective PHYSICAL EXAMINATION: GENERAL: He is a well-developed, well-nourished, obese, black gentleman, lying in bed. HEAD: Normocephalic and atraumatic. EENT: Examination benign. NECK: No neck rigidity was observed. NEUROLOGIC EXAMINATION: MENTAL STATUS EXAMINATION: He was awake and alert. He was oriented to person, place, and time. He was able to recall 3/3 words immediately, and in 1 minute and 3 minutes. He was able to remember presidents Trump through [place], but had problems remembering presidents prior to that. His mathematical skills were relatively good. His visuospatial function was preserved. SPEECH: He had no dysarthria. LANGUAGE: He had a mild anomia for low-frequency words. CRANIAL NERVE EXAMINATION: II: The visual dutta were intact to confrontation testing. III, IV & : The external ocular movements were full and the pupils 3 mm in diameter, equal, round, regular, and reactive to light. V: He had normal facial sensations, and the temporales, masseters, and pterygoids functioned normally. VII: He had normal facial expressions and no facial asymmetry. VIII: He was able to hear well bilaterally and had no nystagmus. IX: The palate moved symmetrically on phonation. X: He had no hoarseness of voice. XI: The sternocleidomastoids and trapezii functioned normally. XII: The tongue was in the midline without any fasciculations or atrophy. MOTOR SYSTEM: The tone was normal in both lower extremities and in the right upper extremity. It could not be tested adequately in the left upper extremity because the shoulder was immobilized. Examination of muscle mass revealed no focal wasting. Examination of power revealed grade 5/5 power in all muscle groups tested. It should be noted that the left shoulder and elbow were not tested because they were immobilized. SENSORY EXAMINATION: He had intact sensation to pinprick, light touch, and graphesthesia. COORDINATION: He performed well on [id number]-jy-[id number] testing. He performed well on vgtynr-nz-dxyq testing on the right side. Oznumy-im-drlh testing was not tested on the left side as the limb was immobilized. REFLEXES: 1+ and bilaterally symmetrical at the knees, 1+ at the biceps, triceps , and brachioradialis on the right side, not tested on the left side, and zero at both ankles. The plantar responses were flexor bilaterally. STANCE & GAIT: Deferred. ABNORMAL MOVEMENTS: When he was made to use his right and left upper extremities he demonstrated minimal myoclonus with a long latency. He had no asterixis. Impression/Recommendations Diagnostic Impression 1. Mr. Vernon Castillo is a 65-year-old, right-handed, black gentleman, who does have a past history of hypertension, chronic obstructive pulmonary disease , and hepatitis C, who had left shoulder surgery on 11/08/2016 and since then has had some alteration in his mental state and in addition, right upper extremity jerking movements when he uses the extremity. 2. He feels much better today. The mind is clear and the abnormal movements are much better. 3. On neurological examination, at this time, he does demonstrate problems with memory, globally diminished reflexes, and bilateral upper extremity myoclonus. The myoclonus is minimal and the asterixis has resolved. 4. Laboratory data obtained on my initial evaluation revealed that his WBC count was elevated to 14,600. His blood sugar was elevated to 186. His liver function tests were elevated with a total bilirubin of 1.4. AST of 72 and ALT of 42. His TSH and T4 were normal. 5. Further laboratory tests have revealed an elevated Ammonia and hypoxia. 6. The EEG revealed a moderate encephalopathy. 7. The Brain MRI revealed atrophy and a remote lacunar infarct involving the left centrum semiovale. In addition bilateral cerebral periventricular, and deep subcortical white matter signal hyperintensity indicative of chronic microvascular ischemic disease was seen. 8. The patient's history and neurological examination are most compatible with a toxic metabolic encephalopathy causing myoclonus and asterixis. The encephalopathy is resolving and the abnormal movements have almost completely abated. Recommendations 1. Continue present management. 2. Correct hypoxia the best possible. 3. Continue Lactulose. 4. Observe. Linda Tomas M.D., [place]. LINDA TOMAS Nov 13, 2016 11:30
[2016-11-13 11:53] VITALS: BP 120/72
--- NOTE | 2016-11-13 12:29 | Cardiology Progress Note ---
Assessment/Plan Status Narrative 1. s/p L shoulder surgery 2. Smoking 40 pk years- COPD 3. Hepatitis C 4. Mild LFT abnormalities 5.Obesity 6.Hypoxemia - most likely due to anesthesia and COPD- improved 7. R & L arm tremor/ataxia toxic-metabolic- Improved today. due to hepatic encephalopathy, elevated Ammonia levels- resolving. 8. HTN- stable on meds. 9. Hepatic encephalopathy- improved. 10 Leukocytosis-improved Assessment/Plan DC Home. Lactulose TID- QID F/U with PMD re liver status and continued Tx with Lactulose. F/U with Dr. Edmonds. Discussed with Dr. Edmonds. Discussed with RN. Rx given. Subjective Cardiovascular: Reports: no symptoms Respiratory: Denies: cough, orthopnea Gastrointestinal/Abdominal: Reports: no symptoms Genitourinary: Reports: no symptoms Subjective C/O shoulder pain stable. sitting up in chair. R & L upper ext tremor improved. able to feed himself . Ambulated in hallways. Objective Last 24 Hour Vital Signs Date Time Temp Pulse Resp B/P Pulse Ox O2 Delivery O2 Flow Rate FiO2 11/13/16 11:53 97.7 71 20 120/72 96 Room Air 11/13/16 11:44 21 11/13/16 11:44 79 21 97 Room Air 2.0 11/13/16 09:06 144/72 11/13/16 08:10 97.2 79 21 144/72 97 Room Air 11/13/16 07:29 75 16 98 Room Air 11/13/16 07:14 72 18 98 Room Air 2.0 11/13/16 07:14 11/13/16 00:00 97.0 82 20 150/70 98 Room Air 11/12/16 19:46 79 18 99 Room Air 2.0 11/12/16 19:39 79 18 96 Room Air 2.0 11/12/16 19:39 21 11/12/16 19:00 96.1 79 20 152/66 95 Room Air 11/12/16 16:11 78 20 100 Room Air 2.0 11/12/16 16:11 78 20 100 Room Air 2.0 11/12/16 16:00 97.5 78 20 139/73 100 Room Air 11/12/16 15:59 21 11/12/16 15:59 75 18 96 Room Air 2.0 21 General Appearance: alert EENT: PERRL/EOMI Neck: supple Cardiovascular: normal rate, regular rhythm, no gallop/murmur Respiratory/Chest: lungs clear, normal breath sounds Abdomen: normal bowel sounds, non tender, soft, no organomegaly, no mass Extremities: non-tender, no calf tenderness, no swelling Intake and Output 11/12/16 11/13/16 19:00 07:00 Intake Total 320 ml Balance 320 ml Intake Oral 320 ml # Voids 4 # Bowel Movements 3 CHATO MEDINA Nov 13, 2016 12:29
--- NOTE | 2016-11-15 07:34 | Discharge Summary ---
Discharge Summary Hospital Course Date of Admission Nov 08, 2016 at 22:31 Date of Discharge Nov 13, 2016 at 15:45 Admitting Diagnosis Post Op dyspnea HPI Vernon Castillo is a 65 year old male who was admitted on Nov 08, 2016 at 22: 31 for Post Op Dyspnea Hospital Course dc summary #[id number] Discharge Condition Upon Discharge: stable Discharge Disposition Patient was discharged to Home with Home Health(06) Discharge Diagnoses: Discharge Instructions Discharge Instructions Special Instructions I have been assigned to complete a D/C Summary on this account. I was not involved in the patient management Coral Ward NP ([place]) Nov 15, 2016 07:34
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
== END 2016-11-13 15:45 | disposition home health service (06) | DRG 93 ==
LOC: EDBD 21:50 → EMR 22:00 → 4E 22:31 → OBSVTOIN 22:31 → EDBEDREQ 23:08 → 4E 11-09 00:47
DX: G92 Toxic encephalopathy (principal); D69.6 Thrombocytopenia, unspecified; J44.9 Chronic obstructive pulmonary disease, unspecified; K72.90 Hepatic failure, unspecified without coma; R09.02 Hypoxemia; T41.45XA Adverse effect of unspecified anesthetic, initial encounter; Y92.89 Other specified places as the place of occurrence of the external cause; Z98.1 Arthrodesis status; Z87.891 Personal history of nicotine dependence; E66.9 Obesity, unspecified; Z68.35 Body mass index [BMI] 35.0-35.9, adult; V89.2XXS Person injured in unspecified motor-vehicle accident, traffic, sequela; F17.200 Nicotine dependence, unspecified, uncomplicated; Z86.73 Personal history of transient ischemic attack (TIA), and cerebral infarction without residual deficits; I10 Essential (primary) hypertension; Z86.19 Personal history of other infectious and parasitic diseases; G25.3 Myoclonus; R27.8 Other lack of coordination; Z98.890 Other specified postprocedural states
CPT/HCPCS: 36415; 36600; 70551; 71010; 80048; 80053; 82140; 82248; 82306; 82607; 82746; 82803; 83036; 83880; 84439; 84443; 84481; 84484; 85007; 85025; 86592; 93005; 93306; 94640; 94664; 95819; G0378